=== PATIENT | female | born 1960 | race African-American/Black ===

== ENCOUNTER 2016-08-19 05:35 | Day surgery (SDC) | payer MEDICARE, MEDICAID ==
[~2016-08-19] VITALS: Ht 170.2 cm; Wt 86.6 kg
[~2016-08-19 05:35] MED LIST: AMLO10TA4 PO; DOCU-138 PO; FAMOTIDINE PO; FERROUS SULFATE PO; GLIP5TAB73 PO; LIP40; LISI-186 PO; METF500T4 PO; METO-296 PO; PRAS10TA6 PO
[2016-08-19] MEDS ORDERED: FENTANYL CITRATE/PF 50MCG/ML 2ML VIAL ONE (08:09)
[2016-08-19] MEDS ORDERED: MIDAZOLAM HCL 2 MG/2 ML VIAL ONE ×2 (08:09→08:46)
[2016-08-19] MEDS ORDERED: LIDOCAINE HCL 1% 20ML VIAL (Pyxis) INJ ONE (08:09)
[2016-08-19] MEDS ORDERED: IOHEXOL-300 100 ML BOTTLE ONE (08:09)
[2016-08-19] MEDS ORDERED: HYDROMORPHONE HCL/PF 2MG/ML (OR) ONE (08:25)
[2016-08-19] MEDS ORDERED: HEPARIN SODIUM 1,000 UNIT/1ML VIAL IV ONE (08:37)
[2016-08-19] MEDS ORDERED: ACETAMINOPHEN 325MG TABLET PO PRN (09:30)
== END 2016-08-19 15:50 | disposition home or self-care (01) ==
LOC: CCL 05:35
PROVIDERS: ATTEND Specialist
DX: I25.10 Atherosclerotic heart disease of native coronary artery without angina pectoris (principal); I10 Essential (primary) hypertension; E78.5 Hyperlipidemia, unspecified; E11.9 Type 2 diabetes mellitus without complications; I34.0 Nonrheumatic mitral (valve) insufficiency
CPT/HCPCS: 82962; 93459; C1760; C1769; C1887; C1893; J1170; J1644; J2250; J3010; J3490; Q9967

== ENCOUNTER 2016-09-25 06:34 | Emergency (ER) | payer MEDICARE, MEDICAID ==
[~2016-09-25] VITALS: Ht 170.2 cm; Wt 91.0 kg
[2016-09-25] MEDS ORDERED: LORAZEPAM 2MG/ML CPJ IV ONE (10:00)
[2016-09-25 12:19] VITALS: BP 127/71
== END 2016-09-25 12:33 | disposition home or self-care (01) ==
LOC: ER 07:45
DX: F41.9 Anxiety disorder, unspecified (principal); R53.1 Weakness; R20.0 Anesthesia of skin; R51 Headache; R00.2 Palpitations; R42 Dizziness and giddiness; I11.9 Hypertensive heart disease without heart failure; R06.4 Hyperventilation; Z88.0 Allergy status to penicillin; Z98.61 Coronary angioplasty status; Z79.899 Other long term (current) drug therapy
CPT/HCPCS: 93005; 96374; 99284; J2060

== ENCOUNTER → 2019-09-03 | Outpatient (CLI) | payer MEDICARE, MEDICAID ==
[~2019-09-03] MED LIST changes: +GLIP5TAB3 PO; -GLIP5TAB73 PO; +METF-414 PO; -METF500T4 PO; -METO-296 PO; +METO-396 PO
== END | disposition home or self-care (01) ==
LOC: LAB 10:12
PROVIDERS: ATTEND Specialist
DX: R05 Cough (principal); Z20.828 Contact with and (suspected) exposure to other viral communicable diseases
CPT/HCPCS: U0003-CS

== ENCOUNTER 2019-09-05 08:11 | Day surgery (SDC) | payer MEDICARE, MEDICAID ==
[~2019-09-05] VITALS: Ht 170.2 cm; Wt 81.6 kg
[2019-09-05] MEDS ORDERED: LIDOCAINE HCL 1% 20ML VIAL (Pyxis) INJ ONE (11:15)
[2019-09-05] MEDS ORDERED: IODIXANOL 320MG/ML 100 ML BOTTLE IV ONE (11:16)
[2019-09-05] MEDS ORDERED: MIDAZOLAM HCL 2 MG/2 ML VIAL ONE (11:16)
[2019-09-05] MEDS ORDERED: FENTANYL CITRATE/PF 50MCG/ML 2ML VIAL ONE (11:16)
[2019-09-05] MEDS ORDERED: ONDANSETRON HCL 4MG/2ML INJ IV PRN (12:00)
[2019-09-05] MEDS ORDERED: ACETAMINOPHEN 325MG TABLET PO PRN (12:00)
[2019-09-05] MEDS ORDERED: HEPARIN SODIUM 1,000 UNIT/1ML VIAL IV ONE (13:00)
== END 2019-09-06 18:05 | disposition home or self-care (01) ==
LOC: CCL 08:11
PROVIDERS: ATTEND Specialist
DX: R07.9 Chest pain, unspecified (principal); I25.110 Atherosclerotic heart disease of native coronary artery with unstable angina pectoris; I10 Essential (primary) hypertension; E78.5 Hyperlipidemia, unspecified; E11.9 Type 2 diabetes mellitus without complications; I25.2 Old myocardial infarction; Z95.1 Presence of aortocoronary bypass graft; Z88.0 Allergy status to penicillin; Z88.8 Allergy status to other drugs, medicaments and biological substances; Z82.49 Family history of ischemic heart disease and other diseases of the circulatory system; Z79.899 Other long term (current) drug therapy; Z79.84 Long term (current) use of oral hypoglycemic drugs; Z98.890 Other specified postprocedural states
CPT/HCPCS: 82962; 93459; 99152; C1760; C1769; C1887; C1893; J1644; J2250; J3010; J3490; Q9967; G0500